=== PATIENT | female | born 1955 | race Caucasian/White ===

== ENCOUNTER 2016-12-08 02:16 | Emergency (ER) | payer OTHER ==
--- NOTE | 2016-12-08 04:13 | ED ORDER SUMMARY ---
..... Patient: BUTCH DANIELS OrderSheet [facility] VisitID: [id number] [address] [place] [address] 61y, F Registration Date/Time: 12/08/2016 ORDER SHEET Weight: 61.2 kg (stated) Allergies: No Known Drug Allergy GENERAL ORDERS: MEDICATION ORDERS: DuoNeb Neb Tx 1 unit dose (NOW) (02:24 12/08/2016 Kieran Matthews) (Ack 2:26 HSoule) (2:27 ASingh) Prednisone PO 40 mg (NOW) (02:24 12/08/2016 Kieran Matthews) (Ack 2:26 HSoule) (2:33 HSoule) Levaquin PO 500 mg (NOW) (02:44 12/08/2016 Kieran Matthews) (Ack 2:45 HSoule) (2:52 HSoule) IV FLUIDS: ORDER SHEET NOTES: [Electronically signed by Eduardo Mckinnon Dr. (04:14 12/08/2016)] [Electronically signed by Armida Nolan (04:12/08/2016)] [Electronically locked/signed by Armida Nolan (04:12/08/2016)]
--- NOTE | 2016-12-08 04:13 | ED ORDER SUMMARY ---
..... Patient: BUTCH DANIELS OrderSheet [facility] VisitID: [id number] [address] [place] [address] 61y, F Registration Date/Time: 12/08/2016 ORDER SHEET Weight: 61.2 kg (stated) Allergies: No Known Drug Allergy GENERAL ORDERS: MEDICATION ORDERS: DuoNeb Neb Tx 1 unit dose (NOW) (02:24 12/08/2016 Kieran Matthews) (Ack 2:26 HSoule) (2:27 ASingh) Prednisone PO 40 mg (NOW) (02:24 12/08/2016 Kieran Matthews) (Ack 2:26 HSoule) (2:33 HSoule) Levaquin PO 500 mg (NOW) (02:44 12/08/2016 Kieran Matthews) (Ack 2:45 HSoule) (2:52 HSoule) IV FLUIDS: ORDER SHEET NOTES: [Electronically signed by Eduardo Mckinnon Dr. (04:14 12/08/2016)] [Electronically signed by Armida Nolan (04:12/08/2016)] [Electronically locked/signed by Armida Nolan (04:12/08/2016)]
--- NOTE | 2016-12-08 04:13 | ED NURSING NOTES ---
Clinical Report - Nurses [facility] [address] [place] [address] 12/08/2016 2:17 [id number] Triage time 02:Dec 08 2016. Acuity: LEVEL 3. Chief Complaint: SHORTNESS OF BREATH and DIFFICULTY BREATHING. ( RT at bedside). SEPSIS SCREEN: Sepsis Screen: negative. Negative (no infection suspected/documented). Heart rate greater than 90. SHANIQUE COMA SCORE: Shanique Coma Scale: 15- eyes open spontaneously (4); best verbal response- oriented x 4 (5); best motor response- obeys commands (6). --02:25 Armida Nolan 02:18 12/08/16. BP: 180/144. HR: 100. RR: 22. O2 saturation: 91% on room air. Temp: 98 F (oral). Pain level now: 0/10. --02:25 Armida Nolan. Weight: 61.2 kg stated. Height/Length: 66 inches Per Patient. BMI: 21.8. --02:23 Armida Nolan. Medications Gabapentin Oral. --02:20 Armida Nolan Nortriptyline HCl Oral. --02:21 Armida Nolan INHALER . --02:21 Armida Nolan. Medication/allergy information source: the patient. --02:25 Armida Nolan. Allergies No Known Drug Allergy. --04:27 Armida Nolan. History Arrived by private vehicle. Historian: patient. Unaccompanied. Primary physician ([facility]). This started today. ( Patient reports history of COPD. She reports usually using an inhaler but not having it filled due to change of doctor. She reports difficulty breathing for twenty four hours that has progressively gotten worse.). No fever or cough. Treatment RETAIL WORKER: None. PAST MEDICAL HX: Chronic obstructive pulmonary disease. Immunizations: up-to-date. The patient is post-menopausal. SOCIAL HX: Former smoker, end date 2015. No alcohol use or drug use. No infectious disease exposure. ABUSE ASSESSMENT: No report of abuse. FALL RISK ASSESSMENT: Fall risk assessment completed. No fall risk identified. NUTRITIONAL RISK ASSESSMENT: The nutritional risk assessment revealed no deficiencies. FUNCTIONAL ASSESSMENT: Functional assessment: no impairments noted. LEARNING NEEDS ASSESSMENT: The learning needs assessment revealed no barriers. SKIN INTEGRITY ASSESSMENT: Skin integrity risk assessment completed. No skin integrity risk identified. --02:25 Armida Nolan. PROBLEMS: COPD - Chronic Obstructive Pulmonary Disease. --02:23 Armida Nolan. ADDITIONAL SURGERIES: no known surgeries. Interventions ID band on patient. To treatment room. --02:25 Armida Nolan. PHYSICAL ASSESSMENT GENERAL / NEURO / PSYCH: Alert. Oriented X 4. Appears in distress. HEENT: Mucous membranes are pink. RESPIRATORY: Moderate respiratory distress. The patient can speak a few words at a time. Wheezing present; wheezes audible without auscultation. CVS: Cardiac rhythm: sinus tachycardia; (100). SKIN: Skin is warm and dry. --02:25 Armida Nolan. NURSING PROGRESS NOTES Oxygen administered by nasal cannula at 2 liters. school bus monitor, pulse oximeter and NIBP monitor placed on patient; monitor alarms on. Patient gowned. Head of bed elevated. Reassurance given to the patient. Two patient identifiers checked. Call light placed in reach. Side rails up x 1. Bed placed in lowest position. Brakes of bed on. Patient ready for evaluation- chart flagged and ED physician notified. ( Provider at bedside). --02:25 Armida Nolan 02:26 12/08/16. BP: 161/86. HR: 92. O2 saturation: 100%. Additional comments: while on [employer] . --02:27 Armida Nolan 02:33 12/08/2016 Prednisone PO Tablets 40 mg given. Allergies verified and confirmed 5 rights. --02:33 Armida Nolan 02:52 12/08/2016 Levaquin (Levofloxacin) PO Tablets 500 mg given. Allergies verified and confirmed 5 rights. --02:52 Armida Nolan 02:52 12/08/16. BP: 144/94. HR: 87. RR: 20. O2 saturation: 95% on room air. --02:53 Armida Nolan 03:07 12/08/16. BP: 150/84. HR: 94. RR: 20. O2 saturation: 90% on room air. --03:08 Armida Nolan 03:48 12/08/16. BP: 138/90. HR: 90. RR: 20. O2 saturation: 90% on room air. --03:49 Armida Nolan Reassessment after medication administered. Overall patient status is improved. --03:57 Armida Nolan 03:57 12/08/16. BP: 144/85. HR: 92. RR: 20. O2 saturation: 94% on room air. --03:57 Armida Nolan. DISPOSITION / DISCHARGE 04:15 12/08/16. Condition at departure: improved and stable. The goals identified in the patient's plan of care were met. No learning barriers present. Discharge instructions provided and reviewed with the patient. Reviewed medication(s) side effects, precautions, dosing and course information. Prescription(s) given to the patient. Patient verbalized understanding. Written instructions provided in Sierra Leonean. ( Follow up with your PCP in three days. Return if symptoms worsen. Increase fluids and rest. Patient verbalized understanding and had no additional questions at this time.). The patient was discharged by the physician. She was discharged home and unaccompanied at time of discharge. She left the Emergency Department ambulatory and via private vehicle. Patient driving. FALL RISK ASSESSMENT: Fall risk assessment completed. No fall risk identified. --04:25 Armida Nolan 04:22 12/08/16. BP: 140/88. HR: 80. RR: 20. O2 saturation: 94% on room air. Temp: 99 F (oral). Pain level now: 0/10. --04:25 Armida Nolan. Locked/Released at 12/08/2016 4:27 by Armida Nolan,
--- NOTE | 2016-12-08 04:13 | ED CLINICAL REPORT ---
Clinical Report - Physicians/Mid Levels [facility] [address] [place] [address] 12/08/2016 2:17 Patient: BUTCH DANIELS Time Seen: 02:24; initial patient contact. Arrived- By private vehicle. Historian- patient. HISTORY OF PRESENT ILLNESS Chief Complaint: DYSPNEA and HISTORY OF CHRONIC OBSTRUCTIVE PULMONARY DISEASE. This started about 2 days ago and is still present and worsening. (persistent). It was gradual in onset. The dyspnea is described as moderate. She has not had worsening of dyspnea with walking or exertion. No improvement of dyspnea with rest or sitting upright. The patient has had sputum production, a cough and wheezing. No fever, sweating episodes, chills or chest pain or discomfort. No calf pain, foot swelling, anxiety or palpitations. Similar symptoms previously: Several times. Recent medical care: Not recently seen/assessed. REVIEW OF SYSTEMS The patient has had a nasal discharge and sinus drainage. No nausea or vomiting. All systems otherwise negative, except as recorded above. PAST HISTORY COPD - Chronic Obstructive Pulmonary Disease. Surgeries: No history of previous surgery. Additional Surgeries: no known surgeries. Medications: INHALER . Nortriptyline HCl Oral. Gabapentin Oral. SOCIAL HISTORY Former smoker, end date 2015. No alcohol use or drug use. ADDITIONAL NOTES The nursing notes have been reviewed. PHYSICAL EXAM Vital Signs: 12/08/2016 02:18 BP: 180/144. HR: 100. RR: 22. O2 saturation: 91%. Temp: 98 F. Pain level now: 0/10. Have been reviewed. Hypertensive. Tachycardic. Tachypneic. Temperature normal. Oxygen saturation low. Appearance: Alert. No acute distress. Eyes: Eyes normal inspection. ENT: Pharynx normal. CVS: Normal heart rate and rhythm. Heart sounds normal. Respiratory: Moderate respiratory distress with accessory muscle use and retractions. Speaks short phrases. Expiratory moderate bilateral wheezes diffusely. No rales. Skin: Skin warm and dry. Normal skin color. No rash. Extremities: No calf tenderness. No lower extremity edema. Neuro: Oriented X 3. PROGRESS AND PROCEDURES Course of Care: Prednisone 40 mg PO given. DuoNeb nebulizer treatment (1 unit dose) given. Disposition: Discharged home in good and improved condition. Condition: good. CLINICAL IMPRESSION Acute exacerbation of COPD. INSTRUCTIONS Do not work today. Your Current Medications: CONTINUE TAKING THE FOLLOWING MEDICATIONS: Gabapentin Oral. INHALER *. Nortriptyline HCl Oral. Prescription Medications: Albuterol HFA oral inhaler: inhale 2 puffs every 4 hours as needed for wheezing, difficulty breathing or shortness of breath. Dispense one (1) unit. No refill. Levaquin 500 mg: take 1 tab orally every day for 4 days. No refills. Substitution is permissible. Prednisone 20 mg: take 2 orally every day for 4 days. Dispense sufficient quantity. No refills. Follow-up: Follow up with your doctor in about three days. Call for an appointment. Screening today revealed the patient's blood pressure to be in the hypertensive range. The patient should follow up with a primary care provider for blood pressure management. (Electronically signed by Eduardo Mckinnon Dr. 12/08/2016 4:14)
--- NOTE | 2016-12-08 04:13 | ED NURSING NOTES ---
Clinical Report - Nurses [facility] [address] [place] [address] 12/08/2016 2:17 Patient: BUTCH DANIELS [facility] [id number] TRIAGE Triage time 02:Dec 08 2016. Acuity: LEVEL 3. Chief Complaint: SHORTNESS OF BREATH and DIFFICULTY BREATHING. ( RT at bedside). SEPSIS SCREEN: Sepsis Screen: negative. Negative (no infection suspected/documented). Heart rate greater than 90. SHANIQUE COMA SCORE: Shanique Coma Scale: 15- eyes open spontaneously (4); best verbal response- oriented x 4 (5); best motor response- obeys commands (6). --02:25 Armida Nolan 02:18 12/08/16. BP: 180/144. HR: 100. RR: 22. O2 saturation: 91% on room air. Temp: 98 F (oral). Pain level now: 0/10. --02:25 Armida Nolan. Weight: 61.2 kg stated. Height/Length: 66 inches Per Patient. BMI: 21.8. --02:23 Armida Nolan. Medications Gabapentin Oral. --02:20 Armida Nolan Nortriptyline HCl Oral. --02:21 Armida Nolan INHALER . --02:21 Armida Nolan. Medication/allergy information source: the patient. --02:25 Armida Nolan. Allergies No Known Drug Allergy. --04:27 Armida Nolan. History Arrived by private vehicle. Historian: patient. Unaccompanied. Primary physician ([facility]). This started today. ( Patient reports history of COPD. She reports usually using an inhaler but not having it filled due to change of doctor. She reports difficulty breathing for twenty four hours that has progressively gotten worse.). No fever or cough. Treatment FOOD SERVICES DIRECTOR: None. PAST MEDICAL HX: Chronic obstructive pulmonary disease. Immunizations: up-to-date. The patient is post-menopausal. SOCIAL HX: Former smoker, end date 2015. No alcohol use or drug use. No infectious disease exposure. ABUSE ASSESSMENT: No report of abuse. FALL RISK ASSESSMENT: Fall risk assessment completed. No fall risk identified. NUTRITIONAL RISK ASSESSMENT: The nutritional risk assessment revealed no deficiencies. FUNCTIONAL ASSESSMENT: Functional assessment: no impairments noted. LEARNING NEEDS ASSESSMENT: The learning needs assessment revealed no barriers. SKIN INTEGRITY ASSESSMENT: Skin integrity risk assessment completed. No skin integrity risk identified. --02:25 Armida Nolan. PROBLEMS: COPD - Chronic Obstructive Pulmonary Disease. --02:23 Armida Nolan. ADDITIONAL SURGERIES: no known surgeries. Interventions ID band on patient. To treatment room. --02:25 Armida Nolan. PHYSICAL ASSESSMENT GENERAL / NEURO / PSYCH: Alert. Oriented X 4. Appears in distress. HEENT: Mucous membranes are pink. RESPIRATORY: Moderate respiratory distress. The patient can speak a few words at a time. Wheezing present; wheezes audible without auscultation. CVS: Cardiac rhythm: sinus tachycardia; (100). SKIN: Skin is warm and dry. --02:25 Armida Nolan. NURSING PROGRESS NOTES Oxygen administered by nasal cannula at 2 liters. house principal, pulse oximeter and NIBP monitor placed on patient; monitor alarms on. Patient gowned. Head of bed elevated. Reassurance given to the patient. Two patient identifiers checked. Call light placed in reach. Side rails up x 1. Bed placed in lowest position. Brakes of bed on. Patient ready for evaluation- chart flagged and ED physician notified. ( Provider at bedside). --02:25 Armida Nolan 02:26 12/08/16. BP: 161/86. HR: 92. O2 saturation: 100%. Additional comments: while on [employer] . --02:27 Armida Nolan 02:33 12/08/2016 Prednisone PO Tablets 40 mg given. Allergies verified and confirmed 5 rights. --02:33 Armida Nolan 02:52 12/08/2016 Levaquin (Levofloxacin) PO Tablets 500 mg given. Allergies verified and confirmed 5 rights. --02:52 Armida Nolan 02:52 12/08/16. BP: 144/94. HR: 87. RR: 20. O2 saturation: 95% on room air. --02:53 Armida Nolan 03:07 12/08/16. BP: 150/84. HR: 94. RR: 20. O2 saturation: 90% on room air. --03:08 Armida Nolan 03:48 12/08/16. BP: 138/90. HR: 90. RR: 20. O2 saturation: 90% on room air. --03:49 Armida Nolan Reassessment after medication administered. Overall patient status is improved. --03:57 Armida Nolan 03:57 12/08/16. BP: 144/85. HR: 92. RR: 20. O2 saturation: 94% on room air. --03:57 Armida Nolan. DISPOSITION / DISCHARGE 04:15 12/08/16. Condition at departure: improved and stable. The goals identified in the patient's plan of care were met. No learning barriers present. Discharge instructions provided and reviewed with the patient. Reviewed medication(s) side effects, precautions, dosing and course information. Prescription(s) given to the patient. Patient verbalized understanding. Written instructions provided in Vietnamese. ( Follow up with your PCP in three days. Return if symptoms worsen. Increase fluids and rest. Patient verbalized understanding and had no additional questions at this time.). The patient was discharged by the physician. She was discharged home and unaccompanied at time of discharge. She left the Emergency Department ambulatory and via private vehicle. Patient driving. FALL RISK ASSESSMENT: Fall risk assessment completed. No fall risk identified. --04:25 Armida Nolan 04:22 12/08/16. BP: 140/88. HR: 80. RR: 20. O2 saturation: 94% on room air. Temp: 99 F (oral). Pain level now: 0/10. --04:25 Armida Nolan. Locked/Released at 12/08/2016 4:27 by Armida Nolan,
--- NOTE | 2016-12-08 04:28 | ED MED RECONCILIATION SUMMARY ---
Patient: BUTCH DANIELS Medication Reconciliation Report [facility] VisitID: [id number] [address] [place] [address] 61y, F Registration Date/Time: 12/08/2016 Weight: 61.2 kg Height/Length: 66 in. BMI: 21.8 ALLERGIES: No Known Drug Allergy The patient's Home Medications are listed below: CONTINUE TAKING THE FOLLOWING MEDICATIONS: Gabapentin Oral INHALER Nortriptyline HCl Oral The source(s) of the original Home Medication information: patient The following Medications were given to the patient in the Emergency Department: Duoneb [Neb Tx] Neb TX 1 unit dose, administered: 12/08/2016 2:27:00 AM Prednisone [PO] PO 40 mg, administered: 12/08/2016 2:33:00 AM Levaquin [PO] PO 500 mg, administered: 12/08/2016 2:52:00 AM The following Medications were prescribed to the patient: Albuterol HFA oral inhaler: inhale 2 puffs every 4 hours as needed for wheezing, difficulty breathing or shortness of breath. Dispense one (1) unit. No refill. -- Eduardo Mckinnon Dr. Levaquin 500 mg: take 1 tab orally every day for 4 days. No refills. Substitution is permissible. -- Eduardo Mckinnon Dr. Prednisone 20 mg: take 2 orally every day for 4 days. Dispense sufficient quantity. No refills. -- Eduardo Mckinnon Dr.
--- NOTE | 2016-12-08 04:28 | ED DISCHARGE INSTRUCTIONS ---
Patient: BUTCH DANIELS General Instructions [facility] VisitID: [id number] [place] [address] 61y, F Registration Date/Time: 12/08/2016 Acute exacerbation of COPD. INSTRUCTIONS Do not work today. Your Current Medications: CONTINUE TAKING THE FOLLOWING MEDICATIONS: Gabapentin Oral. INHALER *. Nortriptyline HCl Oral. Prescription Medications: Albuterol HFA oral inhaler: inhale 2 puffs every 4 hours as needed for wheezing, difficulty breathing or shortness of breath. Dispense one (1) unit. No refill. Levaquin 500 mg: take 1 tab orally every day for 4 days. No refills. Substitution is permissible. Prednisone 20 mg: take 2 orally every day for 4 days. Dispense sufficient quantity. No refills. Follow-up: Follow up with your doctor in about three days. Call for an appointment. Screening today revealed the patient's blood pressure to be in the hypertensive range. The patient should follow up with a primary care provider for blood pressure management. ADDITIONAL INFORMATION Albuterol Sulfate Pressurized inhalation, suspension What is this medicine? ALBUTEROL (al BYOO ter ole) is a bronchodilator. It helps open up the airways in your lungs to make it easier to breathe. This medicine is used to treat and to prevent bronchospasm. How should I use this medicine? This medicine is for inhalation through the mouth. Follow the directions on your prescription label. Take your medicine at regular intervals. Do not use more often than directed. Make sure that you are using your inhaler correctly. Ask you doctor or health care provider if you have any questions. Talk to your vp care management regarding the use of this medicine in children. Special care may be needed. What side effects may I notice from receiving this medicine? Side effects that you should report to your doctor or health animal care assistant as soon as possible: allergic reactions like skin rash, itching or hives, swelling of the face, lips, or tongue breathing problems chest pain feeling faint or lightheaded, falls high blood pressure irregular heartbeat fever muscle cramps or weakness pain, tingling, numbness in the hands or feet vomiting Side effects that usually do not require medical attention (report to your doctor or health animal care assistant if they continue or are bothersome): cough difficulty sleeping headache nervousness or trembling stomach upset stuffy or runny nose throat irritation unusual taste What may interact with this medicine? anti-infectives like chloroquine and pentamidine caffeine cisapride diuretics medicines for colds medicines for depression or for emotional or psychotic conditions medicines for weight loss including some herbal products methadone some antibiotics like clarithromycin, erythromycin, levofloxacin, and linezolid some heart medicines steroid hormones like dexamethasone, cortisone, hydrocortisone theophylline thyroid hormones What if I miss a dose? If you miss a dose, use it as soon as you can. If it is almost time for your next dose, use only that dose. Do not use double or extra doses. Where should I keep my medicine? Keep out of the reach of children. Store at room temperature between 15 and 30 degrees C (59 and 86 degrees F). The contents are under pressure and may burst when exposed to heat or flame. Do not freeze. This medicine does not work as well if it is too cold. Throw away any unused medicine after the expiration date. Inhalers need to be thrown away after the labeled number of puffs have been used or by the expiration date; whichever comes first. Ventolin HFA should be thrown away 12 months after removing from foil pouch. Check the instructions that come with your medicine. What should I tell my health care provider before I take this medicine? They need to know if you have any of the following conditions: diabetes heart disease or irregular heartbeat high blood pressure pheochromocytoma seizures thyroid disease an unusual or allergic reaction to albuterol, levalbuterol, sulfites, other medicines, foods, dyes, or preservatives or trying to get breast-feeding What should I watch for while using this medicine? Tell your doctor or health animal care assistant if your symptoms do not improve. Do not use extra albuterol. If your asthma or bronchitis gets worse while you are using this medicine, call your doctor right away. If your mouth gets dry try chewing sugarless gum or sucking hard candy. Drink water as directed. Levofloxacin Oral tablet What is this medicine? LEVOFLOXACIN (gail johns) is a quinolone antibiotic. It is used to treat certain kinds of bacterial infections. It will not work for colds, flu, or other viral infections. How should I use this medicine? Take this medicine by mouth with a full glass of water. Follow the directions on the prescription label. This medicine can be taken with or without food. Take your medicine at regular intervals. Do not take your medicine more often than directed. Do not skip doses or stop your medicine early even if you feel better. Do not stop taking except on your doctor's advice. A special MedGuide will be given to you by the pharmacist with each prescription and refill. Be sure to read this information carefully each time. Talk to your vp care management regarding the use of this medicine in children. While this drug may be prescribed for children as young as 6 months for selected conditions, precautions do apply. What side effects may I notice from receiving this medicine? Side effects that you should report to your doctor or health animal care assistant as soon as possible: -allergic reactions like skin rash or hives, swelling of the face, lips, or tongue -changes in vision -confusion, nightmares or hallucinations -difficulty breathing -irregular heartbeat, chest pain -joint, muscle or tendon pain -pain or difficulty passing urine -persistent headache with or without blurred vision -redness, blistering, peeling or loosening of the skin, including inside the mouth -seizures -unusual pain, numbness, tingling, or weakness -vaginal irritation, discharge Side effects that usually do not require medical attention (report to your doctor or health animal care assistant if they continue or are bothersome): -diarrhea -dry mouth -headache -stomach upset, nausea -trouble sleeping What may interact with this medicine? Do not take this medicine with any of the following medications: - arsenic trioxide - chloroquine - droperidol - medicines for irregular heart rhythm like amiodarone, disopyramide, dofetilide, flecainide, quinidine, procainamide, sotalol - some medicines for depression or mental problems like phenothiazines, pimozide, and ziprasidone This medicine may also interact with the following medications: - amoxapine -antacids - cisapride - dairy products - didanosine (ddI) buffered tablets or powder - haloperidol - multivitamins -NSAIDS, medicines for pain and inflammation, like ibuprofen or naproxen - retinoid products like tretinoin or isotretinoin - risperidone - some other antibiotics like clarithromycin or erythromycin - sucralfate - theophylline - warfarin What if I miss a dose? If you miss a dose, take it as soon as you remember. If it is almost time for your next dose, take only that dose. Do not take double or extra doses. Where should I keep my medicine? Keep out of the reach of children. Store at room temperature between 15 and 30 degrees C (59 and 86 degrees F). Keep in a tightly closed container. Throw away any unused medicine after the expiration date. What should I tell my health care provider before I take this medicine? They need to know if you have any of these conditions: cerebral disease irregular heartbeat kidney disease seizure disorder an unusual or allergic reaction to levofloxacin, other antibiotics or medicines, foods, dyes, or preservatives or trying to get breast-feeding What should I watch for while using this medicine? Tell your doctor or health animal care assistant if your symptoms do not improve or if they get worse. Drink several glasses of water a day and cut down on drinks that contain caffeine. You must not get dehydrated while taking this medicine. You may get drowsy or dizzy. Do not drive, use machinery, or do anything that needs mental alertness until you know how this medicine affects you. Do not sit or stand up quickly, especially if you are an older patient. This reduces the risk of dizzy or fainting spells. This medicine can make you more sensitive to the sun. Keep out of the sun. If you cannot avoid being in the sun, wear protective clothing and use a sunscreen. Do not use sun lamps or tanning beds/booths. Contact your doctor if you get a sunburn. If you are a diabetic monitor your blood glucose carefully. If you get an unusual reading stop taking this medicine and call your doctor right away. Do not treat diarrhea with [id number] products. Contact your doctor if you have diarrhea that lasts more than 2 days or if the diarrhea is severe and watery. Avoid antacids, calcium, iron, and zinc products for 2 hours before and 2 hours after taking a dose of this medicine. Prednisone Oral tablet What is this medicine? PREDNISONE (PRED ni sone) is a corticosteroid. It is commonly used to treat inflammation of the skin, joints, lungs, and other organs. Common conditions treated include asthma, allergies, and arthritis. It is also used for other conditions, such as blood disorders and diseases of the adrenal glands. How should I use this medicine? Take this medicine by mouth with a glass of water. Follow the directions on the prescription label. Take this medicine with food. If you are taking this medicine once a day, take it in the morning. Do not take more medicine than you are told to take. Do not suddenly stop taking your medicine because you may develop a severe reaction. Your doctor will tell you how much medicine to take. If your doctor wants you to stop the medicine, the dose may be slowly lowered over time to avoid any side effects. Talk to your vp care management regarding the use of this medicine in children. Special care may be needed. What side effects may I notice from receiving this medicine? Side effects that you should report to your doctor or health animal care assistant as soon as possible: allergic reactions like skin rash, itching or hives, swelling of the face, lips, or tongue changes in emotions or moods changes in vision depressed mood eye pain fever or chills, cough, sore throat, pain or difficulty passing urine increased thirst swelling of ankles, feet Side effects that usually do not require medical attention (report to your doctor or health animal care assistant if they continue or are bothersome): confusion, excitement, restlessness headache nausea, vomiting skin problems, acne, thin and shiny skin trouble sleeping weight gain What may interact with this medicine? Do not take this medicine with any of the following medications: metyrapone mifepristone This medicine may also interact with the following medications: aminoglutethimide amphotericin B aspirin and aspirin-like medicines barbiturates certain medicines for diabetes, like glipizide or glyburide cholestyramine cholinesterase inhibitors cyclosporine digoxin diuretics ephedrine female hormones, like estrogens and control pills isoniazid ketoconazole NSAIDS, medicines for pain and inflammation, like ibuprofen or naproxen phenytoin rifampin toxoids vaccines warfarin What if I miss a dose? If you miss a dose, take it as soon as you can. If it is almost time for your next dose, talk to your doctor or health animal care assistant. You may need to miss a dose or take an extra dose. Do not take double or extra doses without advice. Where should I keep my medicine? Keep out of the reach of children. Store at room temperature between 15 and 30 degrees C (59 and 86 degrees F). Protect from light. Keep container tightly closed. Throw away any unused medicine after the expiration date. What should I tell my health care provider before I take this medicine? They need to know if you have any of these conditions: Fernando's syndrome diabetes glaucoma heart disease high blood pressure infection (especially a virus infection such as chickenpox, cold sores, or herpes) kidney disease liver disease mental illness myasthenia gravis osteoporosis seizures stomach or intestine problems thyroid disease an unusual or allergic reaction to lactose, prednisone, other medicines, foods, dyes, or preservatives or trying to get breast-feeding What should I watch for while using this medicine? Visit your doctor or health animal care assistant for regular checks on your progress. If you are taking this medicine over a prolonged period, carry an identification card with your name and address, the type and dose of your medicine, and your doctor's name and address. This medicine may increase your risk of getting an infection. Tell your doctor or health animal care assistant if you are around anyone with measles or chickenpox, or if you develop sores or blisters that do not heal properly. If you are going to have surgery, tell your doctor or health animal care assistant that you have taken this medicine within the last twelve months. Ask your doctor or health animal care assistant about your diet. You may need to lower the amount of salt you eat. This medicine may affect blood sugar levels. If you have diabetes, check with your doctor or health animal care assistant before you change your diet or the dose of your diabetic medicine. You have been given the following additional information: Albuterol Sulfate Pressurized inhalation, suspension Levofloxacin Oral tablet Prednisone Oral tablet Do not work today. (Electronically signed by Eduardo Mckinnon Dr. 12/08/2016 4:14)
--- NOTE | 2016-12-08 04:28 | ED MED RECONCILIATION SUMMARY ---
Patient: BUTCH DANIELS Medication Reconciliation Report [facility] VisitID: [id number] [address] [place] [address] 61y, F Registration Date/Time: 12/08/2016 Weight: 61.2 kg Height/Length: 66 in. BMI: 21.8 ALLERGIES: No Known Drug Allergy The patient's Home Medications are listed below: CONTINUE TAKING THE FOLLOWING MEDICATIONS: Gabapentin Oral INHALER Nortriptyline HCl Oral The source(s) of the original Home Medication information: patient The following Medications were given to the patient in the Emergency Department: Duoneb [Neb Tx] Neb TX 1 unit dose, administered: 12/08/2016 2:27:00 AM Prednisone [PO] PO 40 mg, administered: 12/08/2016 2:33:00 AM Levaquin [PO] PO 500 mg, administered: 12/08/2016 2:52:00 AM The following Medications were prescribed to the patient: Albuterol HFA oral inhaler: inhale 2 puffs every 4 hours as needed for wheezing, difficulty breathing or shortness of breath. Dispense one (1) unit. No refill. -- Eduardo Mckinnon Dr. Levaquin 500 mg: take 1 tab orally every day for 4 days. No refills. Substitution is permissible. -- Eduardo Mckinnon Dr. Prednisone 20 mg: take 2 orally every day for 4 days. Dispense sufficient quantity. No refills. -- Eduardo Mckinnon Dr.
--- NOTE | 2016-12-08 04:28 | ED MAR SUMMARY ---
..... Medication Administration Record [facility] [address] [place] [address] Patient: BUTCH DANIELS Visit ID: [id number] 61y, F Weight: 61.2 kg Height/Length: 66 in BMI: 21.8 ALLERGIES: No Known Drug Allergy Given 02:27 12/08/2016 Dami Mendoza, Medication Administered: DUONEB [NEB TX] (IPRATROPIUM-ALBUTEROL), Dose: 1 unit dose Nebulizer Neb TX. Medication Ordered: DuoNeb Neb Tx 1 unit dose (NOW). Given 02:33 12/08/2016 Armida Nolan, Medication Administered: PREDNISONE [PO], Dose: 40 mg Tablets PO. Medication Ordered: Prednisone PO 40 mg (NOW). Given 02:52 12/08/2016 Armida Nolan, Medication Administered: LEVAQUIN [PO] (LEVOFLOXACIN), Dose: 500 mg Tablets PO. Medication Ordered: Levaquin PO 500 mg (NOW).
--- NOTE | 2016-12-08 04:28 | ED MAR SUMMARY ---
..... Medication Administration Record [facility] [address] [place] [address] Patient: BUTCH DANIELS Visit ID: [id number] 61y, F Weight: 61.2 kg Height/Length: 66 in BMI: 21.8 ALLERGIES: No Known Drug Allergy Given 02:27 12/08/2016 Dami Mendoza, Medication Administered: DUONEB [NEB TX] (IPRATROPIUM-ALBUTEROL), Dose: 1 unit dose Nebulizer Neb TX. Medication Ordered: DuoNeb Neb Tx 1 unit dose (NOW). Given 02:33 12/08/2016 Armida Nolan, Medication Administered: PREDNISONE [PO], Dose: 40 mg Tablets PO. Medication Ordered: Prednisone PO 40 mg (NOW). Given 02:52 12/08/2016 Armida Nolan, Medication Administered: LEVAQUIN [PO] (LEVOFLOXACIN), Dose: 500 mg Tablets PO. Medication Ordered: Levaquin PO 500 mg (NOW).
--- NOTE | 2016-12-08 04:28 | ED DISCHARGE INSTRUCTIONS ---
Patient: BUTCH DANIELS General Instructions [facility] VisitID: [id number] [place] [address] 61y, F Registration Date/Time: 12/08/2016 Acute exacerbation of COPD. INSTRUCTIONS Do not work today. Your Current Medications: CONTINUE TAKING THE FOLLOWING MEDICATIONS: Gabapentin Oral. INHALER *. Nortriptyline HCl Oral. Prescription Medications: Albuterol HFA oral inhaler: inhale 2 puffs every 4 hours as needed for wheezing, difficulty breathing or shortness of breath. Dispense one (1) unit. No refill. Levaquin 500 mg: take 1 tab orally every day for 4 days. No refills. Substitution is permissible. Prednisone 20 mg: take 2 orally every day for 4 days. Dispense sufficient quantity. No refills. Follow-up: Follow up with your doctor in about three days. Call for an appointment. Screening today revealed the patient's blood pressure to be in the hypertensive range. The patient should follow up with a primary care provider for blood pressure management. ADDITIONAL INFORMATION Albuterol Sulfate Pressurized inhalation, suspension What is this medicine? ALBUTEROL (al BYOO ter ole) is a bronchodilator. It helps open up the airways in your lungs to make it easier to breathe. This medicine is used to treat and to prevent bronchospasm. How should I use this medicine? This medicine is for inhalation through the mouth. Follow the directions on your prescription label. Take your medicine at regular intervals. Do not use more often than directed. Make sure that you are using your inhaler correctly. Ask you doctor or health care provider if you have any questions. Talk to your tortilla maker regarding the use of this medicine in children. Special care may be needed. What side effects may I notice from receiving this medicine? Side effects that you should report to your doctor or health body care manager as soon as possible: allergic reactions like skin rash, itching or hives, swelling of the face, lips, or tongue breathing problems chest pain feeling faint or lightheaded, falls high blood pressure irregular heartbeat fever muscle cramps or weakness pain, tingling, numbness in the hands or feet vomiting Side effects that usually do not require medical attention (report to your doctor or health body care manager if they continue or are bothersome): cough difficulty sleeping headache nervousness or trembling stomach upset stuffy or runny nose throat irritation unusual taste What may interact with this medicine? anti-infectives like chloroquine and pentamidine caffeine cisapride diuretics medicines for colds medicines for depression or for emotional or psychotic conditions medicines for weight loss including some herbal products methadone some antibiotics like clarithromycin, erythromycin, levofloxacin, and linezolid some heart medicines steroid hormones like dexamethasone, cortisone, hydrocortisone theophylline thyroid hormones What if I miss a dose? If you miss a dose, use it as soon as you can. If it is almost time for your next dose, use only that dose. Do not use double or extra doses. Where should I keep my medicine? Keep out of the reach of children. Store at room temperature between 15 and 30 degrees C (59 and 86 degrees F). The contents are under pressure and may burst when exposed to heat or flame. Do not freeze. This medicine does not work as well if it is too cold. Throw away any unused medicine after the expiration date. Inhalers need to be thrown away after the labeled number of puffs have been used or by the expiration date; whichever comes first. Ventolin HFA should be thrown away 12 months after removing from foil pouch. Check the instructions that come with your medicine. What should I tell my health care provider before I take this medicine? They need to know if you have any of the following conditions: diabetes heart disease or irregular heartbeat high blood pressure pheochromocytoma seizures thyroid disease an unusual or allergic reaction to albuterol, levalbuterol, sulfites, other medicines, foods, dyes, or preservatives or trying to get breast-feeding What should I watch for while using this medicine? Tell your doctor or health body care manager if your symptoms do not improve. Do not use extra albuterol. If your asthma or bronchitis gets worse while you are using this medicine, call your doctor right away. If your mouth gets dry try chewing sugarless gum or sucking hard candy. Drink water as directed. Levofloxacin Oral tablet What is this medicine? LEVOFLOXACIN (gail johns) is a quinolone antibiotic. It is used to treat certain kinds of bacterial infections. It will not work for colds, flu, or other viral infections. How should I use this medicine? Take this medicine by mouth with a full glass of water. Follow the directions on the prescription label. This medicine can be taken with or without food. Take your medicine at regular intervals. Do not take your medicine more often than directed. Do not skip doses or stop your medicine early even if you feel better. Do not stop taking except on your doctor's advice. A special MedGuide will be given to you by the pharmacist with each prescription and refill. Be sure to read this information carefully each time. Talk to your tortilla maker regarding the use of this medicine in children. While this drug may be prescribed for children as young as 6 months for selected conditions, precautions do apply. What side effects may I notice from receiving this medicine? Side effects that you should report to your doctor or health body care manager as soon as possible: -allergic reactions like skin rash or hives, swelling of the face, lips, or tongue -changes in vision -confusion, nightmares or hallucinations -difficulty breathing -irregular heartbeat, chest pain -joint, muscle or tendon pain -pain or difficulty passing urine -persistent headache with or without blurred vision -redness, blistering, peeling or loosening of the skin, including inside the mouth -seizures -unusual pain, numbness, tingling, or weakness -vaginal irritation, discharge Side effects that usually do not require medical attention (report to your doctor or health body care manager if they continue or are bothersome): -diarrhea -dry mouth -headache -stomach upset, nausea -trouble sleeping What may interact with this medicine? Do not take this medicine with any of the following medications: - arsenic trioxide - chloroquine - droperidol - medicines for irregular heart rhythm like amiodarone, disopyramide, dofetilide, flecainide, quinidine, procainamide, sotalol - some medicines for depression or mental problems like phenothiazines, pimozide, and ziprasidone This medicine may also interact with the following medications: - amoxapine -antacids - cisapride - dairy products - didanosine (ddI) buffered tablets or powder - haloperidol - multivitamins -NSAIDS, medicines for pain and inflammation, like ibuprofen or naproxen - retinoid products like tretinoin or isotretinoin - risperidone - some other antibiotics like clarithromycin or erythromycin - sucralfate - theophylline - warfarin What if I miss a dose? If you miss a dose, take it as soon as you remember. If it is almost time for your next dose, take only that dose. Do not take double or extra doses. Where should I keep my medicine? Keep out of the reach of children. Store at room temperature between 15 and 30 degrees C (59 and 86 degrees F). Keep in a tightly closed container. Throw away any unused medicine after the expiration date. What should I tell my health care provider before I take this medicine? They need to know if you have any of these conditions: cerebral disease irregular heartbeat kidney disease seizure disorder an unusual or allergic reaction to levofloxacin, other antibiotics or medicines, foods, dyes, or preservatives or trying to get breast-feeding What should I watch for while using this medicine? Tell your doctor or health body care manager if your symptoms do not improve or if they get worse. Drink several glasses of water a day and cut down on drinks that contain caffeine. You must not get dehydrated while taking this medicine. You may get drowsy or dizzy. Do not drive, use machinery, or do anything that needs mental alertness until you know how this medicine affects you. Do not sit or stand up quickly, especially if you are an older patient. This reduces the risk of dizzy or fainting spells. This medicine can make you more sensitive to the sun. Keep out of the sun. If you cannot avoid being in the sun, wear protective clothing and use a sunscreen. Do not use sun lamps or tanning beds/booths. Contact your doctor if you get a sunburn. If you are a diabetic monitor your blood glucose carefully. If you get an unusual reading stop taking this medicine and call your doctor right away. Do not treat diarrhea with [id number] products. Contact your doctor if you have diarrhea that lasts more than 2 days or if the diarrhea is severe and watery. Avoid antacids, calcium, iron, and zinc products for 2 hours before and 2 hours after taking a dose of this medicine. Prednisone Oral tablet What is this medicine? PREDNISONE (PRED ni sone) is a corticosteroid. It is commonly used to treat inflammation of the skin, joints, lungs, and other organs. Common conditions treated include asthma, allergies, and arthritis. It is also used for other conditions, such as blood disorders and diseases of the adrenal glands. How should I use this medicine? Take this medicine by mouth with a glass of water. Follow the directions on the prescription label. Take this medicine with food. If you are taking this medicine once a day, take it in the morning. Do not take more medicine than you are told to take. Do not suddenly stop taking your medicine because you may develop a severe reaction. Your doctor will tell you how much medicine to take. If your doctor wants you to stop the medicine, the dose may be slowly lowered over time to avoid any side effects. Talk to your tortilla maker regarding the use of this medicine in children. Special care may be needed. What side effects may I notice from receiving this medicine? Side effects that you should report to your doctor or health body care manager as soon as possible: allergic reactions like skin rash, itching or hives, swelling of the face, lips, or tongue changes in emotions or moods changes in vision depressed mood eye pain fever or chills, cough, sore throat, pain or difficulty passing urine increased thirst swelling of ankles, feet Side effects that usually do not require medical attention (report to your doctor or health body care manager if they continue or are bothersome): confusion, excitement, restlessness headache nausea, vomiting skin problems, acne, thin and shiny skin trouble sleeping weight gain What may interact with this medicine? Do not take this medicine with any of the following medications: metyrapone mifepristone This medicine may also interact with the following medications: aminoglutethimide amphotericin B aspirin and aspirin-like medicines barbiturates certain medicines for diabetes, like glipizide or glyburide cholestyramine cholinesterase inhibitors cyclosporine digoxin diuretics ephedrine female hormones, like estrogens and control pills isoniazid ketoconazole NSAIDS, medicines for pain and inflammation, like ibuprofen or naproxen phenytoin rifampin toxoids vaccines warfarin What if I miss a dose? If you miss a dose, take it as soon as you can. If it is almost time for your next dose, talk to your doctor or health body care manager. You may need to miss a dose or take an extra dose. Do not take double or extra doses without advice. Where should I keep my medicine? Keep out of the reach of children. Store at room temperature between 15 and 30 degrees C (59 and 86 degrees F). Protect from light. Keep container tightly closed. Throw away any unused medicine after the expiration date. What should I tell my health care provider before I take this medicine? They need to know if you have any of these conditions: Fernando's syndrome diabetes glaucoma heart disease high blood pressure infection (especially a virus infection such as chickenpox, cold sores, or herpes) kidney disease liver disease mental illness myasthenia gravis osteoporosis seizures stomach or intestine problems thyroid disease an unusual or allergic reaction to lactose, prednisone, other medicines, foods, dyes, or preservatives or trying to get breast-feeding What should I watch for while using this medicine? Visit your doctor or health body care manager for regular checks on your progress. If you are taking this medicine over a prolonged period, carry an identification card with your name and address, the type and dose of your medicine, and your doctor's name and address. This medicine may increase your risk of getting an infection. Tell your doctor or health body care manager if you are around anyone with measles or chickenpox, or if you develop sores or blisters that do not heal properly. If you are going to have surgery, tell your doctor or health body care manager that you have taken this medicine within the last twelve months. Ask your doctor or health body care manager about your diet. You may need to lower the amount of salt you eat. This medicine may affect blood sugar levels. If you have diabetes, check with your doctor or health body care manager before you change your diet or the dose of your diabetic medicine. You have been given the following additional information: Albuterol Sulfate Pressurized inhalation, suspension Levofloxacin Oral tablet Prednisone Oral tablet Do not work today. (Electronically signed by Eduardo Mckinnon Dr. 12/08/2016 4:14)
== END 2016-12-08 04:15 | disposition home or self-care (01) ==
LOC: ED SRH 02:16
DX: J44.1 Chronic obstructive pulmonary disease with (acute) exacerbation (principal); Z87.891 Personal history of nicotine dependence